=== PATIENT | male | born 1965 | race African-American/Black ===

== ENCOUNTER 2024-12-17 12:47 | Emergency (ER) | payer SELFPAY ==
[~2024-12-17 12:47] MED LIST: Iopamidol-370 76% 500 ML MDV (1 ML CHARGE) ONE
[2024-12-17 13:41] LABS: #Basophils 0.04 10x3/uL (0.0-0.2); %Basophils 0.8 % (0.0-1.0); %Lymphocytes 30.4 % (21.0-51.0); %Monocytes 7.1 % (0.0-10.0); %Neutrophils 58.5 % (42.0-75.0); Hemoglobin 14.9 g/dL (14.0-18.0); Mean Corpuscular HGB CONC 34.7 g/dL (32.0-36.0); Mean Corpuscular Volume 83.7 fL (78.0-98.0); Mean Platelet Volume 10.4 fL (7.4-10.4); Platelet Count 203 10x3/uL (130-400); RBC Distribution Width 13.5 % (11.5-14.5); Red Blood Cell (RBC) Count 5.14 mill/uL (4.70-6.10)
[2024-12-17 13:51] LABS: ALT (SGPT) 32 U/L (Less than 45); AST (SGOT) 31 U/L (11-34); Albumin 4.1 g/dL (3.1-4.5); Alkaline Phosphatase 50 U/L (40-110); Anion Gap 14 mmol/L (10-20); BUN (Urea Nitrogen) 10 mg/dL (8.4-25.7); Bilirubin, Total 0.6 mg/dL (0.3-1.2); Calc. Creatinine Clearance 0 mL/min (70-130); Calcium 9.4 mg/dL (7.8-10.44); Carbon Dioxide 25 mmol/L (22-29); Chloride 106 mmol/L (98-107); Estimated GFR 69; Globulin 3.3 g/dL (2.4-3.5); Glucose 100 mg/dL (70-105); Potassium 4.1 mmol/L (3.5-5.1); Protein, Total 7.4 g/dL (6.0-8.3); Sodium 141 mmol/L (136-145)
[2024-12-17 13:55] LABS: Troponin I 0.015 ng/mL (< 0.028)
[2024-12-17 13:58] LABS: PTT 27.7 sec (22.9-36.1); Prothrombin Time 13.4 sec (12.0-14.7)
[2024-12-17 16:09] LABS: Bacteria/HPF None Seen HPF (None Seen); Bilirubin Negative (Negative); Blood, Urine Negative (Negative); CAUTI Indications for Culture Alt mental st,lethar; Clarity Clear (Clear); Glucose, Urine (Dipstick) Normal (Negative); Ketone, Urine Negative (Negative); Leukocyte Negative Leu/uL (Negative); Nitrite Negative (Negative); Protein, Urine (Dipstick) Negative (Neg-Trace); RBC/HPF 0-3 HPF (0-3); Specific Gravity, Urine 1.045 (1.002-1.036); Squamous Epithelial None Seen HPF (0-3); Urobilinogen Normal mg/dL (Less than 2); WBC/HPF None Seen HPF (0-3); pH, Urine 7.5 (5.0-9.0)
[2024-12-17 16:22] LABS: Urine Culture Reflex No No
== END 2024-12-17 18:36 | disposition home or self-care (01) ==
LOC: ERS 12:47
DX: H26.9 Unspecified cataract (principal); F17.210 Nicotine dependence, cigarettes, uncomplicated
CPT/HCPCS: 36415; 70496; 70498; 71045; 80053; 81001; 84484; 85025; 85610; 85730; 93005; Q9967

== ENCOUNTER 2025-07-14 22:16 | Emergency (ER) | payer OTHER ==
[2025-07-14] MEDS ORDERED: Lidocaine 1% PF 5 ML VIAL ONE (23:34)
[2025-07-14] MEDS ORDERED: Bacitracin 1 PK ONE (23:34)
[2025-07-14] MEDS ORDERED: Ketorolac Tromethamine 30 MG (1 mL) VIAL ONE ×2 (23:34→23:38)
[2025-07-14] MEDS ORDERED: Boostrix 0.5 ML (Tdap) VIAL (>/=7 yrs of age) ONE ×2 (23:35)
== END 2025-07-15 02:29 | disposition home or self-care (01) ==
LOC: ERS 22:16
DX: S01.112A Laceration without foreign body of left eyelid and periocular area, initial encounter (principal); F17.210 Nicotine dependence, cigarettes, uncomplicated; W22.8XXA Striking against or struck by other objects, initial encounter
CPT/HCPCS: 12011; 70450; 70486; 90471; 90715; 96372; J1885

== ENCOUNTER 2025-10-05 16:34 | Emergency (ER) | payer OTHER ==
[2025-10-05] MEDS ORDERED: Acetaminophen 500 MG TAB ONE (18:24)
[2025-10-05 18:41] LABS: Bacteria/HPF None Seen HPF (None Seen); CAUTI Indications for Culture Dysuria,urgency,freq; Glucose, Urine (Dipstick) Normal (Negative); Leukocyte Negative Leu/uL (Negative); Protein, Urine (Dipstick) Negative (Neg-Trace); RBC/HPF 0-3 HPF (0-3); Specific Gravity, Urine 1.012 (1.002-1.036); WBC/HPF 0-3 HPF (0-3)
[2025-10-05 18:45] LABS: #Basophils 0.05 10x3/uL (0.0-0.2); #Eosinophils 0.14 10x3/uL (0.0-0.7); #Monocytes 0.39 10x3/uL (0.11-0.59); #Neutrophils 2.60 10x3/uL (1.40-6.50); %Basophils 1.0 % (0.0-1.0); %Eosinophils 2.8 % (0.0-10.0); %Lymphocytes 35.3 % (21.0-51.0); %Monocytes 7.8 % (0.0-10.0); %Neutrophils 52.1 % (42.0-75.0); Hematocrit 42.6 % (42.0-52.0); Hemoglobin 14.3 g/dL (14.0-18.0); Mean Corpuscular Hemoglobin 28.5 pg (27.0-31.0); Mean Corpuscular Volume 84.9 fL (78.0-98.0); Platelet Count 186 10x3/uL (130-400); Red Blood Cell (RBC) Count 5.02 mill/uL (4.70-6.10); White Blood Cell (WBC) Count 4.99 10x3/uL (4.8-10.8)
[2025-10-05 18:51] LABS: Urine Culture Reflex No No
[2025-10-05 19:02] LABS: ALT (SGPT) 30 U/L (Less than 45); AST (SGOT) 19 U/L (11-34); Albumin 4.1 g/dL (3.1-4.5); Alkaline Phosphatase 53 U/L (40-110); Anion Gap 13 mmol/L (10-20); BUN (Urea Nitrogen) 11 mg/dL (8.4-25.7); Bilirubin, Total 0.6 mg/dL (0.3-1.2); Calc. Creatinine Clearance 0 mL/min (70-130); Calcium 9.1 mg/dL (7.8-10.44); Carbon Dioxide 21 mmol/L (23-31); Chloride 110 mmol/L (98-107); Globulin 2.7 g/dL (2.4-3.5); Glucose 111 mg/dL (80-115); Potassium 4.1 mmol/L (3.5-5.1); Sodium 140 mmol/L (136-145)
== END 2025-10-05 19:32 | disposition home or self-care (01) ==
LOC: ERS 16:34
DX: S00.83XA Contusion of other part of head, initial encounter (principal); F17.210 Nicotine dependence, cigarettes, uncomplicated; W01.0XXA Fall on same level from slipping, tripping and stumbling without subsequent striking against object, initial encounter
CPT/HCPCS: 36415; 70450; 72125; 80053; 81001; 85025; 96372